=== PATIENT | male | born 1995 | race Two or more races ===

== ENCOUNTER 2018-06-26 13:25 | Emergency (ER) | payer BC ==
[~2018-06-26] VITALS: Ht 182.9 cm; Wt 88.6 kg
[2018-06-26] MEDS ORDERED: ACETAMINOPHEN 650 MG/20.3 ML UDC PO STA (13:42)
[2018-06-26] MEDS ORDERED: ACETAMINOPHEN 650 MG/20.3 ML UDC ONE (13:50)
[2018-06-26 14:52] LABS: APPEARANCE,URINE Clear (CLEAR); BILIRUBIN,URINE SMALL (NEGATIVE); BLOOD, URINE Negative Ery/uL (NEGATIVE); COLOR,URINE Dark Yellow (YELLOW); KETONES,URINE Trace (NEGATIVE); LEUKOCYTE ESTERASE ,URINE Negative (NEGATIVE); NITRITE, URINE Negative (NEGATIVE); PH,URINE 5.5 (5.0-8.0); PROTEIN,URINE 30 mg/dl (NEGATIVE); UGLUCOSE Negative (NEGATIVE); UROBILINOGEN,URINE 0.2 EU/dL (0.2)
[2018-06-26] MEDS ORDERED: AZITHROMYCIN 250 MG TABLET PO ONE (15:30)
[2018-06-26] MEDS ORDERED: CEFTRIAXONE 1 G VIAL IM ONE (15:30)
[2018-06-26] MEDS ORDERED: CEFTRIAXONE 1 G VIAL ONE (15:43)
[2018-06-26] MEDS ORDERED: AZITHROMYCIN 250 MG TABLET ONE (15:44)
[2018-06-26] MEDS ORDERED: LIDOCAINE 1% INJ 50 ML MDV IJ ONE (15:45)
[2018-06-26 16:34] VITALS: BP 125/72
--- NOTE | 2018-06-26 16:35 | NUR ---
For discharge- [facility] given verbalized understanding- NO obvious distress at patients baseline discharge home in stable condition
[2018-06-26 17:49] LABS: BACTERIA,URINE Few /HPF (None Seen); RBC,URINE 0-2 /HPF (0-2); SQUAMOUS EPITHELIAL CELL,UR Few /HPF (None Seen); WBC,URINE 0-2 /HPF (0-3)
[2018-06-26 17:50] LABS: MUCUS,URINE Moderate /LPF (None Seen)
== END 2018-06-26 16:35 | disposition home or self-care (01) ==
LOC: ER 13:27
DX: N45.1 Epididymitis (principal)
CPT/HCPCS: 76870; 81001; 84703; 87086; 87491; 87591; 96372; 99285; A4606; J0696; J3490; Z7610; 81000-TC; J7030